=== PATIENT | male | born 1980 | race Caucasian/White ===

== ENCOUNTER 2021-06-14 14:58 | Emergency (ER) | payer OTHER ==
[2021-06-14] MEDS ORDERED: Sodium Chloride 0.9% 10 ML Syringe FLUSH PRN (15:34)
[2021-06-14] MEDS ORDERED: cefTRIAXone 1 GM in Sodium Chloride 0.9% 100 ML IV ONE (18:31)
== END 2021-06-14 20:20 | disposition home or self-care (01) ==
LOC: JD.ED 14:58
DX: S89.91XA Unspecified injury of right lower leg, initial encounter (principal); F17.210 Nicotine dependence, cigarettes, uncomplicated; Z79.899 Other long term (current) drug therapy; X58.XXXA Exposure to other specified factors, initial encounter
CPT/HCPCS: 36415; 80053; 83605; 83735; 85025; 86140; 87040; 93971; 96365; 99284; J0696; J3490; 99283